=== PATIENT | male | born 1975 | race African-American/Black ===

== ENCOUNTER 2021-07-01 04:26 | Inpatient (IN) | payer SELFPAY ==
[2021-07-01] VITALS (22 sets, daily range): BP systolic 130–162; BP diastolic 93–116; PULSE 90–113; RESP 16–23; TEMP 35.7–36.9; O2SAT 96–100; BMI 20.8
--- NOTE | ~2021-07-01 | XR_ITS ---
EXAMINATION: XR chest 2V EXAM DATE: 07/01/2021 05:07 INDICATION: Chest pain and tightness. TECHNIQUE: Frontal and lateral projections of the chest obtained and reviewed. There is no prior toma dy for comparison. FINDINGS: Lungs are hyperinflated. There is mild cardiomegaly. No confluent consolidation, pneumotho rax or pleural effusion suspected. There are no osseous abnormalities identified. IMPRESSION: Hyperinflation. Cardiomegaly. Reviewed, dictated and finalized at location A.
--- NOTE | 2021-07-01 04:43 | ECG_ITS ---
Measurements Intervals [place] Rate: 94 P: 62 UT: 169 QRS: 1 QRSD: 102 T: 0 QT: 399 QTc: 499 Interpretive Statements SINUS RHYTHM ATRIAL PREMATURE COMPLEXES LEFT ATRIAL ENLARGEMENT POSSIBLE LEFT VENTRICULAR HYPERTROPHY CANNOT RULE OUT SEPTAL INFARCT, AGE INDETERMINATE SUBTLE ST ELEVATION IN INFERIOR LEADS- CONSIDER ACUTE INJURY T WAVE ABNORMALITY IN ANTEROLATERAL LEADS- CONSIDER ISCHEMIA BASELINE ARTIFACT- II, III, AVF, V3-V6 ABNORMAL ECG Electronically Signed On 07-01-2021 7:54:40 CDT by Josué Meek D.O.
--- NOTE | 2021-07-01 05:14 | PC.NURSE ---
REINA Posada in room with pt.
[2021-07-01 05:16] LABS: Basophils Absolute Auto 0.1 K/mm3 (0.0-0.1); Basophils Percent Auto 0.7 % (0.2-1.2); Eosinophils Absolute Auto 0.1 K/mm3 (0-0.3); Eosinophils Percent Auto 0.9 % (0-4.4); Hematocrit 42.6 % (42.0-52.0); Hemoglobin 14.1 g/dL (14.0-18.0); Immature Granulocyte Absolute 0.02 K/mm3 (0.00-0.031); Immature Granulocyte Percent A 0.3 % (0-0.5); Lymphocytes Absolute Auto 1.25 K/mm3 (0.9-3.2); Lymphocytes Percent Auto 17.9 % (18.3-44.2); Mean Corpuscular HGB Conc 33.1 g/dl (32-36); Mean Corpuscular Hemoglobin 33.9 pg (26-34); Mean Corpuscular Volume 102.4 fl (80-100); Mean Platelet Volume 11.4 fl (7.4-10.4); Monocytes Absolute Auto 0.4 K/mm3 (0.1-0.6); Neutrophils Absolute Auto 5.2 K/mm3 (1.3-6.7); Neutrophils Percent Auto 74.2 % (45.5-73.1); Platelet Count Result 302 k/mm3 (150-375); Red Blood Count 4.16 M/mm3 (4.6-6.20); Red Cell Distribution Width 12.2 % (11.5-14.5)
[2021-07-01] MEDS: MORPHINE SULFATE (*CRX) 4 MG/ML INJ IV PUSH ×3 (05:25→09:45)
[2021-07-01 05:30] LABS: Partial Thromboplastin Time 25.4 SECONDS (22.3-36.8); Prothrombin Time 13.2 Seconds (11.1-14.7)
--- NOTE | 2021-07-01 05:31 | PC.NURSE ---
Pt reports he was given nitro x 1 per ems, and it gave him a headache and did NOT decrease his pain.
[2021-07-01 05:36] LABS: Anion Gap 10 mmol/L (8-16); Blood Urea Nitrogen 10 mg/dL (9-20); Calcium 9.4 mg/dL (8.4-10.2); Carbon Dioxide 28 mmol/L (22-30); Chloride 103 mmol/L (98-107); Estimated CRCL calculation 137 ml/min; Estimated Glomerular Filt Rate > 60; Glucose 112 mg/dL (65-110); Potassium 3.3 mmol/L (3.4-5.0); Sodium 141 mmol/L (137-145)
--- NOTE | 2021-07-01 05:56 | ED.GENADULT ---
HPI - General Adult General Chief complaint: Chest Pain Stated complaint: CP Time Seen by Provider: 07/01/21 05:00 History of Present Illness HPI narrative: Patient 45-year-old gentleman who presents the emergency department with chief complaint of chest pain patient reports he started having pain about 30 minutes prior to arrival in the emergency department started having a discomfort in the right side of his chest and also felt short of breath when this happened. Patient states that he has no prior history of cardiac disease he was given 1 nitroglycerin by EMS prior to arrival and also given an aspirin. Related Data Home Medications Medication Instructions Recorded Confirmed No Home Medications 07/01/21 07/01/21 Allergies Allergy/AdvReac Type Severity Reaction Status Date / Time No Known Allergies Allergy Verified 07/01/21 04:33 Review of Systems Review of Systems: A 10 system review of systems was completed on the patient and is negative except for what is stated in the HPI. Nursing and ancillary documentation was reviewed. Exam Narrative: GENERAL: Well-appearing, well-nourished, and in no acute distress. HEAD: Normocephalic, atraumatic. EYES: PERRLA and EOMI. ENT: Nares clear, no rhinorrhea or epistaxis. Mucous membranes moist. NECK: Supple. CHEST: Clear to auscultation. No respiratory distress. HEART: Regular rate and rhythm. No murmur heard. Normal peripheral pulses. ABDOMEN: Soft, nontender, nondistended, normal active bowel sounds. EXTREMITIES: Normal range of motion. No edema. SKIN: Warm, dry, no rash. NEURO: No focal deficits. Alert and oriented x3. PSYCH: Normal mood and affect. Course Course Emergency Course: EKG is sinus rhythm rate of [address] elevation or ST depression noted Patient was found to have an initial troponin of 1.050 patient's pain is resolved at this time after he received 4 mg of morphine patient refused any additional doses of nitroglycerin in the emergency department. Vital Signs Vital signs: Vital Signs Temperature 36.1 C L 07/01/21 04:26 Pulse Rate 90 07/01/21 04:26 Respiratory Rate 18 07/01/21 04:26 Blood Pressure 144/114 H 07/01/21 04:26 Pulse Oximetry 100 07/01/21 04:26 Temperature 36.1 C L 07/01/21 04:26 Pulse Rate 94 07/01/21 05:55 Respiratory Rate 20 07/01/21 05:55 Blood Pressure 146/113 H 07/01/21 05:55 Pulse Oximetry 98 07/01/21 05:55 Medical Decision Making Vital Signs Vital Signs: Vital Signs Temperature 36.1 C L 07/01/21 04:26 Pulse Rate 90 07/01/21 04:26 Respiratory Rate 18 07/01/21 04:26 Blood Pressure 144/114 H 07/01/21 04:26 Pulse Oximetry 100 07/01/21 04:26 Temperature 36.1 C L 07/01/21 04:26 Pulse Rate 94 07/01/21 05:55 Respiratory Rate 20 07/01/21 05:55 Blood Pressure 146/113 H 07/01/21 05:55 Pulse Oximetry 98 07/01/21 05:55 Lab Data Result diagrams: 07/01/21 04:57 07/01/21 04:57 Labs: Lab Results 07/01/21 07/01/21 07/01/21 Range/Units 04:57 04:57 04:57 WBC 7.0 (4.5-10.0) K/mm3 RBC 4.16 L (4.6-6.20) M/mm3 Hgb 14.1 (14.0-18.0) g/dL Hct 42.6 (42.0-52.0) % MCV 102.4 H (80-100) fl MCH 33.9 (26-34) pg MCHC 33.1 (32-36) g/dl RDW 12.2 (11.5-14.5) % Plt Count 302 (150-375) k/mm3 MPV 11.4 H (7.4-10.4) fl Immature Gran % (Auto) 0.3 (0-0.5) % Neut % (Auto) 74.2 H (45.5-73.1) % Lymph % (Auto) 17.9 L (18.3-44.2) % Z[place]ala % (Auto) 6.0 (2.6-8.5) % Eos % (Auto) 0.9 (0-4.4) % Baso % (Auto) 0.7 (0.2-1.2) % Lymph # (Auto) 1.25 (0.9-3.2) K/mm3 [place] # (Auto) 0.4 (0.1-0.6) K/mm3 Eos # (Auto) 0.1 (0-0.3) K/mm3 Baso # (Auto) 0.1 (0.0-0.1) K/mm3 Abs Immat Gran (auto) 0.02 (0.00-0.031) K/mm3 Absolute Neuts (auto) 5.2 (1.3-6.7) K/mm3 Absolute Nucleated RBC 0.0 (0.0-0.012) K/mm3 Nucleated RBC % 0.0 (0.0-0.2) % PT 13.2 (11.1-14.7) Second
[2021-07-01] MEDS: HEPARIN SOD/D5W 100 UNITS/ML 25,000 UNITS/250 ML BAG 10 UNITS IV CONT (06:07)
[2021-07-01 06:08] LABS: Alanine Aminotransferase 23 U/L (4-50); Albumin Level 4.4 g/dL (3.5-5.1); Alkaline Phosphatase 53 U/L (38-126); Aspartate Amino Transferase 34 U/L (17-59); Bilirubin,Total 0.7 mg/dL (0.2-1.3); Lipase 12 U/L (23-300)
[2021-07-01] MEDS: HEPARIN SODIUM 5,000 UNITS/ML VIAL 4000 UNITS IV PUSH (06:08)
--- NOTE | 2021-07-01 08:31 | ECG_ITS ---
Measurements Intervals [place] Rate: 98 P: 60 HI: 166 QRS: -53 QRSD: 101 T: 76 QT: 382 QTc: 489 Interpretive Statements SINUS RHYTHM ATRIAL COUPLET AND FREQUENT ATRIAL PREMATURE COMPLEXES POSSIBLE LEFT ATRIAL ENLARGEMENT LEFT ANTERIOR FASCICULAR BLOCK POSSIBLE LEFT VENTRICULAR HYPERTROPHY CANNOT RULE OUT SEPTAL INFARCT, AGE INDETERMINATE T WAVE ABNORMALITY IN ANTEROLATERAL LEADS- CONSIDER ISCHEMIA BASELINE WANDER- I, III, AVR, AVL ABNORMAL ECG Electronically Signed On 07-01-2021 12:08:51 CDT by Josué Meek D.O.
--- NOTE | 2021-07-01 08:31 | PM.IMHP ---
H&P: HPI History of Present Illness Date/Time: 07/01/21 08:31 This is a very pleasant 45-year-old gentleman with past medical history of nicotine dependence (1 pack per day), prior history of alcohol abuse pancreatitis, currently sober since November of this year, who presented to the emergency department with 2 days epigastric abdominal pain and chest pain. He reports his pain started 2 days ago and felt epigastric in nature and he was wondering about pancreatitis which he has the past. He was taking Emily-Norborne to try to help with that. However this developed into more of a chest pain that is described as pressure with some numbness and tingling in his left hand. He then presented to the emergency department 3 MS. He was given 1 sublingual nitroglycerin and aspirin prior to arrival to ED. in the emergency department he was noted to blood pressure 144/114, heart rate 90, pulse oximetry 100% on room air, temperature 36.1?. Blood work showed WBC 7, hemoglobin 14.1, platelets 302, INR 1, sodium 141, potassium 3.3, chloride 103, bicarb 28, anion gap 10, creatinine 0.7, glucose 112, calcium 9.4, troponin elevated at 1.050. His EKG showed sinus rhythm with atrial premature complexes, multiple ST T wave abnormalities noted in inferior leads and in the lateral leads, he received 4 mg of morphine. When I visited with him he reported pain 4/10. He does use marijuana every few days, but denies any cocaine, methamphetamine, or other street drugs, that could be associated with his presentation. Chief Complaint: Chest pain Review of Systems Review of Systems: All systems reviewed & are unremarkable except as noted in HPI and below PMFSH Past Medical History Medical History Alcohol abuse Marijuana abuse Pancreatitis Social History Social History Social History: History of alcohol abuse, sober since December 01 March 09, smokes 1 pack per day of cigarettes, uses marijuana every few days. Meds Home Medications and Allergies Home Medications Medication Instructions Recorded Confirmed Type No Home Medications 07/01/21 07/01/21 History Allergies Allergy/AdvReac Type Severity Reaction Status Date / Time No Known Allergies Allergy Verified 07/01/21 04:33 Vital Signs Vital Signs - 24 hr 07/01/21 04:26 07/01/21 04:36 07/01/21 05:38 Temperature 97.0 F L Pulse Rate 90 95 103 H Respiratory Rate 18 18 Blood Pressure 144/114 H 141/111 H Pulse Oximetry 100 100 07/01/21 05:55 07/01/21 06:30 07/01/21 07:01 Temperature Pulse Rate 94 100 98 Respiratory Rate 20 18 21 H Blood Pressure 146/113 H 162/116 H 145/108 H Pulse Oximetry 98 97 97 Exam Narrative: Gen: Alert, NAD Abd: Soft, TTP epigastrium Heart: RRR Lungs: CTAB Ext: No bilateral lower extremity edema Skin: No abnormality Eyes: anicteric ENT: Dry MM H&P: Results Labs Labs: Short CBC 07/01/21 Range/Units 04:57 WBC 7.0 (4.5-10.0) K/mm3 Hgb 14.1 (14.0-18.0) g/dL Hct 42.6 (42.0-52.0) % Plt Count 302 (150-375) k/mm3 [facility] 07/01/21 04:57 Sodium 141 Potassium 3.3 L Chloride 103 Carbon Dioxide 28 BUN 10 Creatinine 0.70 Glucose 112 H Calcium 9.4 Cardiac Enzymes 07/01/21 07/01/21 Range/Units 04:57 07:46 Troponin I 1.050 H* 3.500 H* D (0.000-0.034) ng/mL Liver Function 07/01/21 Range/Units 04:56 Total Bilirubin 0.7 (0.2-1.3) mg/dL Direct Bilirubin 0.0 (0-0.3) mg/dL AST 34 (17-59) U/L ALT 23 (4-50) U/L Alkaline Phosphatase 53 (38-126) U/L Albumin 4.4 (3.5-5.1) g/dL Assessment and Plan Assessment and plan (1) Acute non-ST elevation myocardial infarction (NSTEMI): Code(s): I21.4 - Non-ST elevation (NSTEMI) myocardial infarction Status: Acute Assessment and Plan: Initial troponin on presentation 1.050, subsequent troponin 3.5 Received s
[2021-07-01 09:11] LABS: Cholesterol 249 mg/dL (0-200); HDL Direct 73 mg/dL; Triglycerides 75 mg/dL (<150)
[2021-07-01 09:21] LABS: LDL Cholesterol Direct 150 mg/dL
--- NOTE | 2021-07-01 09:24 | PM.CNCAR ---
Assessment and Plan Assessment and plan (1) Acute non-ST elevation myocardial infarction (NSTEMI): Code(s): I21.4 - Non-ST elevation (NSTEMI) myocardial infarction Status: Acute Assessment and Plan: Patient presents with acute onset chest pressure/heaviness with significant upward trending troponin elevation and ischemic EKG changes consistent with ACS/NSTEMI. Symptoms are currently refractory to antianginal therapy including nitrates, morphine and aspirin. Heparin drip already initiated in the emergency department at presentation. -Check lipid panel. Initiate atorvastatin 80 mg daily, aspirin 81 mg daily, metoprolol tartrate 25 mg p.o. b.i.d. 1st dose now. -Repeat 12 lead EKG and troponin stat -Discussed EKG and clinical case with Dr. Evans Interventional Cardiology who agrees with proceeding with coronary angiography. -2D echocardiogram in a.m.. -Continue Heparin gtt for now. -I have advised coronary angiography for delineation of coronary anatomy out of concern for clinical and objective evidence for acute myocardial infarction. Explained potential option if pt asymptomatic and hemodynamically stable may continue supportive therapy with ASA, statin, BB, unfractionated heparin gtt and proceed with angiography in AM. Discussed risks, benefits, and alternatives at length. Risks including but not limited to infection, bleeding/hematoma, myocardial infarction, stroke, with coronary angiography explained. All questions answered to his satisfaction. However, given upward trending troponin indicative of ongoing injury pattern and refractory angina at rest, patient and Dr. Evans of Interventional Cardiology agree to proceed with angiography today. -Further recommendations follow. He was made aware of the gravity of the situation and the need for invasive evaluation in addition to medical therapy and lifestyle modifications. Continue telemetry. He has been informed if symptoms worsen in any fashion or new concerns arise to notify us immediately. He agrees. Spent 61 minutes in the care of this patient including bedside examination and discussions, colleague discussions, chart review, and medical decision making. (2) Hypertension: Code(s): I10 - Essential (primary) hypertension Status: Acute Assessment and Plan: BP elevated. He does not carry a prior diagnosis of hypertension, however, this is suspected. Will continue to observe BP trend. Anticipate will require initiation of ARB. Will avoid NITIN-inhibitor due to history of pancreatitis. (3) Nicotine dependence: Code(s): F17.200 - Nicotine dependence, unspecified, uncomplicated Status: Acute Assessment and Plan: Smoking cessation counseling performed and the need for immediate abstinence for multitude of reasons most directly related to significant increasing cardiovascular complications. Patient verbalized understanding. (4) History of pancreatitis: Code(s): Z87.19 - Personal history of other diseases of the digestive system Status: Acute Assessment and Plan: No evidence of pancreatitis with negative lipase at this time. Patient has chronic abdominal pain intermittently stemming from history of alcohol induced pancreatitis in the past. Patient drinks alcohol rarely but has a history of heavy alcohol ingestion. (5) Marijuana abuse: Code(s): F12.10 - Cannabis abuse, uncomplicated Status: Inactive Assessment and Plan: Counseled against marijuana use and discussed increased risk for cardiovascular complications linked to marijuana. He verbalized understanding. History of Present Illness History of Present Illness Consult date/time: Date of service: 07/01/21 09:24 Cardiology consultation at the request of Dr. Valdes of the [facility] service for opinion regarding chest pain and elevated troponin. Requesting physician: Leola Valdes MD Consult reason: chest pain and Other (Elevated
[2021-07-01 09:29] LABS: Hemoglobin A1C 4.4 % (<5.7)
[2021-07-01] MEDS: METOPROLOL TARTRATE 25 MG TABLET PO (09:44)
[2021-07-01] MEDS: ASPIRIN 81 MG ENTERIC TABLET PO (09:45)
[2021-07-01] MEDS: ATORVASTATIN 40 MG TABLET 80 MG PO (09:45)
--- NOTE | 2021-07-01 11:16 | WPDHPUPDATE1 ---
History and Physical Update Update Date/Time: 07/01/21 11:16 History and Physical has been reviewed, including an updated exam of the patient. There are NO changes in the patient's condition. Risks, benefits, and alternatives have been discussed and questions answered. Patient agrees to proceed with procedure.
--- NOTE | 2021-07-01 11:16 | WPDMODSED ---
Moderate Sedation Note-Pt Data Patient Data Allergies Allergy/AdvReac Type Severity Reaction Status Date / Time No Known Allergies Allergy Verified 07/01/21 04:33 Home Medications Medication Instructions Recorded Confirmed Type No Home Medications 07/01/21 07/01/21 History Current Medications: Active Medications Aspirin (Aspirin 81 Mg Enteric Tablet) 81 mg PO QAM [facility] Last Admin: 07/01/21 09:45 Dose: 81 mg Documented by: Atorvastatin Calcium (Atorvastatin 40 Mg Tablet) 80 mg PO DAILY [facility] Last Admin: 07/01/21 09:45 Dose: 80 mg Documented by: Heparin Sodium (Porcine) (Heparin Sodium 5,000 Units/Ml Vial) 4,000 units IV PUSH PRN PRN PRN Reason: aPTT less than 55 seconds Heparin Sodium (Porcine) (Heparin Sodium 5,000 Units/Ml Vial) 3,000 units IV PUSH PRN PRN PRN Reason: aPTT 55 - 70 seconds Heparin Sodium/Dextrose (Heparin Sodium/D5w 100 Units/Ml) 25,000 units in 250 mls @ 9 mls/hr IV CONT .Q24H [facility]; Protocol Last Titration: 07/01/21 10:32 Dose: 900 units/hr, 9 mls/hr Documented by: Morphine Sulfate (Morphine Sulfate (*Crx) 4 Mg/Ml Inj) 4 mg IV PUSH Q2H PRN PRN Reason: Pain Rated 7-10 Last Admin: 07/01/21 09:45 Dose: 4 mg Documented by: Nitroglycerin (Nitroglycerin Sl 0.4 Mg Tablet) 0.4 mg SUBLINGUAL Q5MIN PRN PRN Reason: Chest Pain Ondansetron HCl (Ondansetron Inj 4 Mg/2 Ml Vial) 4 mg IV PUSH Q4H PRN PRN Reason: Nausea Sedation/Anesthesia: No previous sedation/anesthesia problems (including family history). [facility] Past Medical History Medical History Alcohol abuse Marijuana abuse Pancreatitis Social History Social History Social History: History of alcohol abuse, sober since December 01 March 09, smokes 1 pack per day of cigarettes, uses marijuana every few days. Mod Sed Physical Exam Physical Exam Pre Procedural Exam: Normal: Appearance, Eyes, Ears, Nose, Neck, Throat, Airway, Lungs, Heart Size, Heart Rate, Heart Rhythm, Neuro Exam, Abdomen, Liver, Kidneys, Spleen, Breasts, Genitalia, Extremities and Skin Hours since solid foods: 8 Hours since liquid intake: 8 Mallampati Classification: class 1 Internal Medicine - PN: Obj Da Vital Signs Vital Signs: Vital Signs - 24 hr 07/01/21 04:26 07/01/21 04:36 07/01/21 05:38 Temperature 36.1 C L Pulse Rate 90 95 103 H Respiratory Rate 18 18 Blood Pressure 144/114 H 141/111 H Pulse Oximetry 100 100 07/01/21 05:55 07/01/21 06:30 07/01/21 07:01 Temperature Pulse Rate 94 100 98 Respiratory Rate 20 18 21 H Blood Pressure 146/113 H 162/116 H 145/108 H Pulse Oximetry 98 97 97 07/01/21 07:38 07/01/21 08:46 07/01/21 09:44 Temperature 36.0 C L Pulse Rate 100 102 H 108 H Respiratory Rate 18 23 H Blood Pressure 158/103 H 140/113 H Pulse Oximetry 100 100 Meds/Results Medications: Active Medications Generic Name Dose Route Start Last Admin Trade Name Freq PRN Reason Stop Dose Admin Aspirin 81 mg 07/01/21 09:00 07/01/21 09:45 Aspirin 81 Mg Enteric Tablet PO 81 mg QAM SIMBA Administration Atorvastatin Calcium 80 mg 07/01/21 09:00 07/01/21 09:45 Atorvastatin 40 Mg Tablet PO 80 mg DAILY SIMBA Administration Heparin Sodium (Porcine) 4,000 units 07/01/21 05:52 Heparin Sodium 5,000 Units/Ml Vial IV PUSH PRN PRN aPTT less than 55 seconds Heparin Sodium (Porcine) 3,000 units 07/01/21 09:58 Heparin Sodium 5,000 Units/Ml Vial IV PUSH PRN PRN aPTT 55 - 70 seconds Heparin Sodium/Dextrose 25,000 units in 250 mls @ 9 mls/hr 07/01/21 05:55 07/01/21 10:32 Heparin Sodium/D5w 100 Units/Ml IV CONT 900 units/hr .Q24H SIMBA 9 mls/hr Titration Protocol 900 UNITS/HR Morphine Sulfate 4 mg 07/01/21 06:29 07/01/21 09:45 Morphine Sulfate (*Crx) 4 Mg/Ml Inj IV PUSH 4 mg Q2H PRN Administration Pain Rated 7-10 Nitroglycerin 0.4 mg
--- NOTE | 2021-07-01 11:17 | WPDCARDPROC ---
Cardiac Cath Procedure Note Date of procedure:: 07/01/21 Performing physician:: Jenna Evans MD Date of service 07/01/2021 Indication:: nstemi Brief clinical history:: this is a 45 old patient past history of previous alcoholism, pancreatitis, marijuana use who apparently started to have epigastric abdominal pain associated with central severe chest pain. EKG shows ischemic changes in the anterior leads. Troponin is 1, 3, 6. Patient is currently having active chest pain. due to ongoing chest pain we will bring this patient to laboratory engineer Today to define coronary anatomy. Procedure Procedure performed:: 1-Moderate sedation that started [id number] a.m. and ended at 12:47 p.m. with total duration 18 minutes using 2mg of Versed and 50mcg fentanyl. The registered nurse was Akila East. 2-Selective left and right coronary angiogram. 3-Left heart catheterization with measurement of LVEDP and measurement of gradient across aortic valve. 4- LV angiogram. 4-Right common femoral arterial angiogram. 5-Deployment of 6 [place] Angio-Seal. Sedation/Medication given:: Moderate sedation. Access site:: Right common femoral artery. Estimated blood loss:: 10cc Procedure note:: After informed consent patient was brought in to laboratory engineer with the was draped and prepped in usual manner. Moderate sedation was given and the right groin was infiltrated using 1% lidocaine. Five [place] sheath was obtained using micropuncture needle and the modified Seldinger technique. Selective left coronary angiogram was done using JL4 catheter with the tip of the catheter placed in the left main coronary artery. Selective right coronary angiogram was done using JR4 catheter with the tip of the catheter placed to the right coronary artery. After that 5 [place] pigtail catheter was advanced across the aortic valve into the left ventricle with measurement of LVEDP and measurement of gradient across aortic valve. Right common femoral arterial angiogram was done. Findings:: 1- left coronary artery is a Very large artery that divides into large LAD, large circumflex artery. Left main is free of disease. 2- left anterior descending artery is a large artery that runs and wraps around the apex. Free of disease. Large diagonal 1 branch that has 3 branches and free of disease. 3- leftcircumflex artery is a large artery And free of disease. Large OM1 free of disease. 4- right coronary artery is Large artery and free of disease. 5- LVEDP was 40 mm Hg and no gradient across aortic valve. 6- LV angiogram shows severe cardiomegaly with estimated ejection fraction 10%. Global hypokinesis 6- opening arterial pressure 145/123 was and closing pressure was 158/109 7- right femoral artery angiogram shows no significant disease in the right common femoral artery. Conclusion:: 1- severe systolic dysfunction with estimated ejection fraction 10% and elevated EDP at 40 mm Hg 2- no evidence of CAD. 3- elevated troponins could be related to CHF or myocarditis. Recommend to recheck another troponin and if the trend is going to consider diagnosis of myocarditis. Assessment and Plan Additional Plan optimize heart failure management. consider diagnosis of myocarditis. this patient will most likely advanced heart failure treatments and advise to hook into heart failure clinic at [facility].
[2021-07-01 13:30] LABS: CRP < 0.5 mg/dL (<1.0)
[2021-07-01 13:37] LABS: NT Pro B Type Natriuretic Pept 2060 pg/mL (5-100)
[2021-07-01] MEDS: POTASSIUM CHLORIDE 20 MEQ TABLET PO (13:55)
[2021-07-01 14:04] LABS: Erythrocyte Sedimentation Rate 5 mm/hr (0-20)
[2021-07-01 16:38] LABS: Partial Thromboplastin Time 26.4 SECONDS (22.3-36.8)
[2021-07-01] MEDS: FUROSEMIDE INJ 40 MG/4 ML VIAL IV PUSH (17:04)
--- NOTE | 2021-07-01 17:38 | ADMGEN ---
This patient, Arcadio Colón, was admitted to IMU Room 201-01. Patient/family oriented to hospital policies and general routines including ID bracelet, bed and alarms, visiting hours, pain management, procedures, bathroom and other care routines, personal items, smoking policy, room service/diet, and visiting hours. Information on how to activate the Rapid Response Team has been discussed. Patient/Family are encouraged to report perceived risks to care and to ask questions if they do not understand what they are told or what they should do.
--- NOTE | 2021-07-01 22:12 | PC.NURSE ---
Cardiopulmonary Rehab Services flyer was given to patient given in cardiac admission folder.
[2021-07-02] VITALS (8 sets, daily range): BP systolic 114–129; BP diastolic 66–109; PULSE 101–121; RESP 16–18; TEMP 36.2–36.6; O2SAT 97–99
[2021-07-02] MEDS: BELLADONNA ALK/PHENOB ELIX 10 ML, MAG HYDROX/ALUMINUM HYD/SIMETH 30 ML, LIDOCAINE HCL 2... PO (00:52)
[2021-07-02 00:57] LABS: Lipase 11 U/L (23-300)
[2021-07-02 05:16] LABS: Basophils Absolute Auto 0.1 K/mm3 (0.0-0.1); Basophils Percent Auto 1.1 % (0.2-1.2); Eosinophils Absolute Auto 0.1 K/mm3 (0-0.3); Eosinophils Percent Auto 2.1 % (0-4.4); Hematocrit 46.8 % (42.0-52.0); Hemoglobin 15.6 g/dL (14.0-18.0); Immature Granulocyte Absolute 0.01 K/mm3 (0.00-0.031); Immature Granulocyte Percent A 0.2 % (0-0.5); Lymphocytes Absolute Auto 1.77 K/mm3 (0.9-3.2); Lymphocytes Percent Auto 33.5 % (18.3-44.2); Mean Corpuscular HGB Conc 33.3 g/dl (32-36); Mean Corpuscular Hemoglobin 33.8 pg (26-34); Mean Corpuscular Volume 101.5 fl (80-100); Mean Platelet Volume 11.7 fl (7.4-10.4); Monocytes Absolute Auto 0.5 K/mm3 (0.1-0.6); Monocytes Percent Auto 8.5 % (2.6-8.5); Neutrophils Absolute Auto 2.9 K/mm3 (1.3-6.7); Neutrophils Percent Auto 54.6 % (45.5-73.1); Platelet Count Result 337 k/mm3 (150-375); Red Blood Count 4.61 M/mm3 (4.6-6.20); White Blood Count 5.3 K/mm3 (4.5-10.0)
[2021-07-02 05:29] LABS: Anion Gap 10 mmol/L (8-16); Blood Urea Nitrogen 14 mg/dL (9-20); Carbon Dioxide 25 mmol/L (22-30); Chloride 102 mmol/L (98-107); Estimated CRCL calculation 106 ml/min; Estimated Glomerular Filt Rate > 60; Glucose 96 mg/dL (65-110); Potassium 3.7 mmol/L (3.4-5.0); Sodium 137 mmol/L (137-145)
--- NOTE | 2021-07-02 06:50 | PC.NURSE ---
Pts heart rate keeps jumping to the 150s he is asymptomatic bp is 129/109. Called Dr. Hyatt to make aware
--- NOTE | 2021-07-02 07:22 | PM.IMPN ---
Progress Note: A&P Assessment and Plan (1) Acute non-ST elevation myocardial infarction (NSTEMI): Code(s): I21.4 - Non-ST elevation (NSTEMI) myocardial infarction Status: Acute Assessment and Plan: Initial troponin on presentation 1.050, subsequent troponin 3.5, with uptrending 8.1 to 9.4 most recently this am Received sublingual nitro EN route, 4 mg of morphine in the emergency department Continue sublingual nitro and morphine as needed Chest x-ray showing hyperinflation & cardiomegaly Already received aspirin 324 mg in the emergency department Initiated on heparin infusion followed by cardiac cath no CAD in any vessel listed in cath report Troponin elevation related to myocarditis or advanced CHF? - no kidney injury continue statin & bp control pain control as ordered appreciate cardiology input regarding additional diagnostic tests & management (2) Nicotine dependence: Code(s): F17.200 - Nicotine dependence, unspecified, uncomplicated Status: Acute Assessment and Plan: Smoking cessation discussed. (3) Full code status: Code(s): Z78.9 - Other specified health status Status: Acute Assessment and Plan: Discussed on admission Additional Plan DVT prophylaxis: ANIKA score 1, initiated mechanical prophylaxis Time Spent With Patient Time with patient: less than 15 minutes Subjective Date/time seen: 07/02/21 07:22 no acute medical complaints Review of Systems Review of Systems: All systems reviewed & are unremarkable except as noted in HPI and below Exam Const: General: no acute distress Neck: Neck: no JVD Resp: Effort & Inspection: normal respiratory effort Auscultation: clear to auscultation bilaterally Cardio: Rate: regular rate Rhythm: regular rhythm GI: GI Palp: Yes Soft to palpation and No Tenderness to palpation present (GI) Objective Data Vital Signs Vital Signs: Vital Signs - 24 hr 07/01/21 07:38 07/01/21 08:00 07/01/21 08:46 Temperature 96.8 F L Pulse Rate 100 110 H 102 H Respiratory Rate 18 23 H Blood Pressure 158/103 H 140/113 H Pulse Oximetry 100 100 07/01/21 09:44 07/01/21 10:00 07/01/21 13:13 Temperature 96.5 F L Pulse Rate 108 H 108 H 98 Respiratory Rate 22 H Blood Pressure 140/105 H Pulse Oximetry 100 07/01/21 14:00 07/01/21 14:38 07/01/21 15:43 Temperature 96.3 F L 98.1 F Pulse Rate 93 100 104 H Respiratory Rate 20 16 Blood Pressure 140/96 H Pulse Oximetry 98 100 07/01/21 16:00 07/01/21 18:00 07/01/21 19:43 Temperature 97.7 F Pulse Rate 102 H 100 105 H Respiratory Rate 20 Blood Pressure 134/93 H Pulse Oximetry 98 07/01/21 20:00 07/01/21 21:00 07/01/21 22:00 Temperature 98.4 F 97.9 F Pulse Rate 113 H 102 H 105 H Respiratory Rate 18 20 Blood Pressure 130/106 H 143/100 H Pulse Oximetry 98 97 07/01/21 23:00 07/02/21 00:00 07/02/21 02:00 Temperature 98.1 F Pulse Rate 104 H 108 H 105 H Respiratory Rate 20 Blood Pressure 150/108 H Pulse Oximetry 96 07/02/21 03:48 07/02/21 04:00 07/02/21 06:00 Temperature 97.9 F Pulse Rate 111 H 112 H 121 H Respiratory Rate 18 Blood Pressure 114/66 Pulse Oximetry 99 07/02/21 06:19 Temperature 97.1 F L Pulse Rate 120 H Respiratory Rate 18 Blood Pressure 129/109 H Pulse Oximetry 97 Intake/Output Intake/Output: Intake & Output 06/29/21 06/30/21 07/01/21 07/02/21 23:59 23:59 23:59 23:59 Intake Total 240 Balance 240 Meds/Results Medications: Active Medications Generic Name Dose Route Start Last Admin Trade Name Holger PRN Reason Stop Dose Admin Aspirin 81 mg 07/01/21 09:00 07/01/21 09:45 Aspirin 81 Mg Enteric Tablet PO 81 mg QAM SIMBA Administration Furosemide 40 mg 07/01/21 17:00 07/01/21 17:04 Furosemide Inj 40 Mg/4 Ml Vial IV PUSH 40 mg BID SIMBA Administration Morphine Sulfate 4 mg 07/01/21 06:29 07/01/21 09:45 Morphine Sulfate (*Crx) 4 Mg/Ml Inj I
[2021-07-02] MEDS: FUROSEMIDE INJ 40 MG/4 ML VIAL IV PUSH (08:51)
[2021-07-02] MEDS: ASPIRIN 81 MG ENTERIC TABLET PO (08:51)
[2021-07-02] MEDS: POTASSIUM CHLORIDE 20 MEQ TABLET.ER 40 MEQ PO (08:51)
[2021-07-02 18:40] LABS: SARS-CoV-2 RNA PCR Negative
--- NOTE | 2021-07-13 18:31 | PM.DS ---
DS: Admitting Diagnosis Discharge Date 07/02/21 46-year-old man chest pain and epigastric abdominal pain. Some ST-T wave abnormalities Admitting Diagnosis acute coronary syndrome DS: Discharge Diagnosis Discharge Diagnosis (1) Acute non-ST elevation myocardial infarction (NSTEMI): Code(s): I21.4 - Non-ST elevation (NSTEMI) myocardial infarction Status: Acute DS: Summary Hospital Course Reason for hospitalization: acute coronary syndrome Hospital Course: Patient is a 46-year-old male with alcoholism, history pancreatitis, presenting with chest and epigastric pain. troponins elevated up to 8-9. Diffuse ST-T segment changes, and as such patient was taken to cardiac catheterization. This procedure showed no obvious CAD, and cardiology advises that enzymes and symptoms may be related to myocarditis. We were still in the process of working up the chest pain, patient said that he felt okay and wanted to leave. 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 I discussed with him that he is a very high risk for sudden cardiac given his lowered ejection fraction and elevated troponins, however he understood the risk and was willing to sign AMA paperwork in front of a witness. Discharged against medical advice. Status at Discharge Functional status at discharge: independent ambulation Time Spent with Patient Time attestation: Total time spent providing and/or coordinating discharge services: Time spent: Less than 30 minutes Exam Const: General: no acute distress Neck: Neck: no JVD Resp: Effort & Inspection: normal respiratory effort Auscultation: clear to auscultation bilaterally Cardio: Rate: regular rate Rhythm: regular rhythm GI: GI Palp: Yes Soft to palpation and No Tenderness to palpation present (GI) Discharge Plan Discharge Consulting providers: Humphrey Garcia ; Leola Valdes ; Jenna Evans ; Cleve Kahn ; Josué Meek Patient Disposition: Left Against Medical Advice Patient Instructions: How to Stop Smoking (DC) Discharge Medications: No Action No Home Medications RF: 0 Date of admission: 07/01/21 06:29 Primary Care Provider: PHYSICIAN,[employer]OT[employer]OR Admitting Provider: Ani Hyatt Attending physician on admission: Jeremias Raphael Condition: Stable
== END 2021-07-02 10:12 | disposition left against medical advice (07) | DRG 190 ==
LOC: ANHED 05:58 → ANHIMU 08:33
PROVIDERS: Internal Medicine Cardiovascular Disease; Internal Medicine Nephrology; Admitting Provider Internal Medicine; Emergency Provider Emergency Medicine; Visit Provider Internal Medicine
PROC: 4A023N7 Measurement of Cardiac Sampling and Pressure, Left Heart, Percutaneous Approach (ICD-10-PCS; CPT 93452; principal; 2021-07-01 11:15)
PROC: 4A023N7 Measurement of Cardiac Sampling and Pressure, Left Heart, Percutaneous Approach (ICD-10-PCS; 2021-07-01 11:15)
DX: I21.4 Non-ST elevation (NSTEMI) myocardial infarction (principal); Z20.822 Contact with and (suspected) exposure to COVID-19; I10 Essential (primary) hypertension; F12.10 Cannabis abuse, uncomplicated; F17.210 Nicotine dependence, cigarettes, uncomplicated; F10.11 Alcohol abuse, in remission; Z87.19 Personal history of other diseases of the digestive system
CPT/HCPCS: 36415; 71046; 80048; 80061; 80076; 83036; 83690; 83735; 83880; 84443; 84484; 85025; 85610; 85652; 85730; 86140; 93005; 93458; 96365; 96375; 99291; A9270; C1760; C1887; C1894; C9803; G0269; J1644; J1940; J2250; J2270; J3010; J7040; U0003; U0005